=== PATIENT | female | born 1990 | race Caucasian/White ===

== ENCOUNTER 2017-01-27 03:58 | Emergency (ER) | payer OTHER ==
[~2017-01-27] VITALS: Ht 167.6 cm; Wt 52.6 kg
--- NOTE | 2017-01-27 03:58 | NUR ---
PT BIB [facility], PREBOOK. TAKEN TO OF
--- NOTE | 2017-01-27 04:01 | NUR ---
Dr. Figueroa evaluating patient
[2017-01-27 04:03] VITALS: BP 140/76
[2017-01-27 04:20] VITALS: BP 140/76
--- NOTE | 2017-01-27 04:20 | NUR ---
PATIENT BIB [facility] POLICE DEPT. PATIENT EXAMINED BY DR. WHITESIDE. PATIENT MEDICALLY CLEARED AND RELEASED IN CUSTODY IN STABLE CONDITION. ORIGINAL PRE-BOOK FORM GIVEN TO [facility] OFFICER .
--- NOTE | 2017-01-27 04:20 | NUR ---
Patient discharged with v/s stable. Written and verbal after care instructions given and explained BY DR. WHITESIDE. Patient verbalized understanding. [facility] with in custody. All questions addressed prior to discharge. Advised to follow up with PMD.
== END 2017-01-27 04:20 ==
LOC: MED 03:58
DX: Z02.89 Encounter for other administrative examinations (principal)
CPT/HCPCS: 99283